=== PATIENT | male | born 1985 | race Caucasian/White ===

== ENCOUNTER → 2017-07-29 | Outpatient (CLI) | payer BC ==
[2017-07-31 00:07] LABS: TESTOSTERONE FREE (DIRECT) 16.4 pg/mL (8.7-25.1)
== END ==
LOC: M SMT 09:52
DX: E29.1 Testicular hypofunction (principal)
CPT/HCPCS: 84403

== ENCOUNTER → 2022-06-03 | Outpatient (CLI) | payer BC | LOC: M SLEEP HO 12:16 | PROVIDERS: ATTEND Family Medicine | DX: R06.83 Snoring (principal) ==